=== PATIENT | male | born 1945 | race Caucasian/White ===

== ENCOUNTER 2017-06-10 01:48 | Emergency (ER) | payer MEDICARE ==
[~2017-06-10] VITALS: Ht 182.9 cm; Wt 87.9 kg
[~2017-06-10 01:48] MED LIST: ALPR0.254 PO; AMLO1TAB91 PO; CITA20TA9 PO; DEXL60CA2 PO; DONE10TA61 PO; LOSA100T2 PO; MAGN64TA6 PO; MULT-18 PO; POTA99TA10 PO; QUIN324C PO
--- NOTE | 2017-06-10 02:26 | PHYS DOC ---
Past History Past Medical History: Hypertension Additional Past Medical Histor: Cortical basal degeneration; CLL Past Surgical History: Appendectomy, Cholecystectomy Smoking: Non-smoker Alcohol Use: None Drug Use: None Social History Narrative: lives with and children Adult General Chief Complaint Chief Complaint: ALTERED MENTAL STATUS HPI HPI Patient is a 72 year old male who presents with confusion. 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 He has increasing confusion with this disease (per the son he will forget how to wash his hands). He was diagnosed with bronchitis last week and started on Amoxicillin. No fevers per the . Their daughter moved in after leaving her spouse and causing some strife. last Tuesday the patient was found "in a rage trying to throw out her stuff." Tonight he went to bed at 2300 PM. Unknown when he woke up but the family awakened to him "in a rage again trying to throw out her tubs." Police called initially for the disturbance. No known fall or trauma. PCP Dr Marshall Marrero Review of Systems Review of Systems Constitutional: Denies fever or chills Eyes: Denies change in visual acuity, redness, or eye pain HENT: Denies nasal congestion or sore throat Respiratory: POS cough but no shortness of breath Cardiovascular: No chest pain GI: Denies abdominal pain, nausea, vomiting, bloody stools or diarrhea : Denies dysuria or hematuria Musculoskeletal: Denies back pain or joint pain Integument: Denies rash or skin lesions Neurologic: Denies headache, focal weakness or sensory changes. CONFUSION worsening recently. All other systems were reviewed and found to be within normal limits, except as documented in this note. Current Medications Current Medications Current Medications Medications (Trade) Dose Ordered Sig/Rc Start Time Stop Time Status Last Admin Dose Admin Sodium Chloride 1,000 ml @ 1,000 mls/hr Q1H 06/10/17 02:30 06/10/17 03:29 Allergies Allergies Allergies Coded Allergies Type Severity Reaction Last Updated Verified No Known Drug Allergies 01/14/14 No Physical Exam Physical Exam Constitutional: Well developed, well nourished, no acute distress, non-toxic appearance. HENT: Normocephalic, atraumatic, bilateral external ears normal, oropharynx moist, no oral exudates, nose normal. Eyes: PERRLA, EOMI, conjunctiva normal, no discharge. Neck: Normal range of motion, no tenderness, supple, no stridor. Cardiovascular:Heart rate regular rhythm, no murmur Lungs & Thorax: Bilateral breath sounds clear to auscultation Abdomen: Bowel sounds normal, soft, no tenderness, no masses, no pulsatile masses. Skin: Warm, dry, no erythema, no rash. Back: No tenderness, no CVA tenderness. Extremities: No tenderness, no cyanosis, no clubbing, ROM intact, no edema. Neurologic: Alert and oriented X 1, normal motor function (chronic right upper extremity weakness), normal sensory function, no focal deficits noted. NIHSS 2 due to confusion (does not know age or month) Psychologic: emotionally labile Current Patient Data Vital Signs Vital Signs Date Time Temp Pulse Resp B/P (MAP) Pulse Ox O2 Delivery O2 Flow Rate FiO2 06/10/17 01:50 98.4 86 20 97 Lab Results Laboratory Tests Test 06/10/17 02:22 White Blood Count 13.3 x10^3/uL (4.0-11.0) Red Blood Count 5.09 x10^6/uL (4.30-5.70) Hemoglobin 15.0 g/dL (13.0-17.5) Hematocrit 43.2 % (39.0-53.0) Mean Corpuscular Volume 85 fL (79-100) Mean Corpuscular Hemoglobin 29 pg (25-35) Mean Corpuscular Hemoglobin Concent 35 g/dL (31-37) Red Cell Distribution Width 12.4 % (11.5-14.5) Platelet Count 191 x10^3/uL (140-400) Neutrophils (%) (Auto) 43 % (31-73) Lymphocytes (%) (Auto) 46 % (24-48) Monocytes (%) (Auto) 9 % (0-9) Eosinophils (%) (Auto) 2 % (0-3) Basophils (%) (Auto) 1 % (0-3) Neutrophils # (Auto) 5.7 x10^3uL (1.8-7.7) Lymphocytes # (Auto) 6.1 x10^3/uL (1.0-4.8) Monocytes # (Auto) 1.2 x10^3/uL (0.0-1.1) Eosinophils # (Auto) 0.2 x10^3/uL (0.0-0.7) Basophils # (Auto) 0.1 x10^3/uL (0.0-0.2) Sodium Level 139 mmol/L (136-145) Potassium Level 3.3 mmol/L (3.5-5.1) Chloride Level 102 mmol/L (98-107) Carbon Dioxide Level 28 mmol/L (21-32) Anion Gap 9 (6-14) Blood Urea Nitrogen 6 mg/dL (8-26) Creatinine 1.1 mg/dL (0.7-1.3) Estimated GFR (Cockcroft-Gault) 66.0 BUN/Creatinine Ratio 5 (6-20) Glucose Level 125 mg/dL (70-99) Lactic Acid Level 1.8 mmol/L (0.4-2.0) Calcium Level 8.8 mg/dL (8.5-10.1) Magnesium Level 1.9 mg/dL (1.8-2.4) Total Bilirubin 0.5 mg/dL (0.2-1.0) Aspartate Amino Transf (AST/SGOT) 18 U/L (15-37) Alanine Aminotransferase (ALT/SGPT) 31 U/L (16-63) Alkaline Phosphatase 84 U/L (46-116) Creatine Kinase 248 U/L (39-308) Troponin I Quantitative < 0.017 ng/mL (0-0.055) Total Protein 7.4 g/dL (6.4-8.2) Albumin 4.0 g/dL (3.4-5.0) Albumin/Globulin Ratio 1.2 (1.0-1.7) Lipase 337 U/L (73-393) EKG EKG EKG interpreted by myself at 0213 am with NSR, rate 82, no acute ST elevation Radiology/Procedures Radiology/Procedures CXR interpreted by myself at 0230 am with no acute infiltrate. [address] [address] IMAGING REPORT Signed PATIENT: NISHA SHEA ACCOUNT: [id number] : 1945 LOCATION: ER AGE: 72 SEX: M EXAM STATUS: REG ER ORD. PHYSICIAN: URBAN MARSHALL MD REASON: worsening confusion; has neurologic disorder PROCEDURE: CT HEAD WO CONTRAST INDICATION: 511851.001 Worsening confusion today. COMPARISON: None. TECHNIQUE: Axial CT images obtained through the head without intravenous contrast. One or more of the following individualized dose reduction techniques were utilized for this examination: 1. Automated exposure control; 2. Adjustment of the mA and/or kV according to patient size; 3. Use of iterative reconstruction technique. FINDINGS: No intracranial hemorrhage. No midline shift. Basal cisterns patents. Ventricles and sulci are globally prominent. No acute osseous abnormality. Orbits and paranasal sinuses unremarkable. Scattered foci of low attenuation within the white matter. IMPRESSION: 1. No acute intracranial hemorrhage. 2. Scattered regions of low attenuation within the white matter. Non-specific in nature but frequently secondary to chronic small vessel ischemic disease. 3. Prominence of ventricles and sulci which is frequently secondary to age related volume loss. Electronically signed by: Stas Ogden MD (06/10/2017 3:06 AM) [facility] DICTATED AND SIGNED BY: STAS OGDEN MD DATE: 06/10/17 0300 CC: URBAN MARSHALL MD; CLAIRE BARNETT DO ~ Course & Med Decision Making Course & Med Decision Making Met patient upon arrival. Reviewed prior records and discussed concerns with . He appears to have worsening behavioral and cognitive changes from his underlying neurodegenerative disease. His recent infection or the recent social change with his daughter or both may be worsening his condition. Proceed with evaluation. He does not meet TPA criteria as his findings are non focal and global with no definitive onset. At 0300 am: WBC elevated; started Rocephin IV; lactic acid 1.8. Awaiting CT head results. Spoke w family-she states he has CLL with chronic elevation of WBC which todays level is c/w usual levels. Offered admission PATIENT AND DECLINED. P 85, BP 146/96. He is markedly better in cognition;sitting up on side of bed. She will have him see Dr Barnett tomorrow. I have spoken with the patient and/or caregivers. I have explained the patient' s condition, diagnosis and treatment plan based on the information available to me at this time. I have answered the patient's and/or caregiver's questions and addressed any concerns. The patient and/or caregivers have as good an understanding of the patient's diagnosis, condition and treatment plan as can be expected at this point. The patient's condition is stable and appropriate for discharge from the emergency department. The patient will pursue further outpatient evaluation with the primary care physician or other designated or consulting physician as outlined in the discharge instructions. The patient and/or caregivers are agreeable to this plan of care and follow-up instructions have been explained in detail. The patient and/or caregivers have received these instructions in written format and have expressed an understanding of the discharge instructions. The patient and/or caregivers are aware that any significant change in condition or worsening of symptoms should prompt an immediate return to this or the closest emergency department or a call to 911. Dragon Disclaimer Dragon Disclaimer This electronic medical record was generated, in whole or in part, using a voice recognition dictation system. Departure Departure: Impression: Primary Impression: Bronchitis Additional Impressions: Confusion Neurodegenerative dementia Aggressive behavior Disposition: 01 HOME, SELF-CARE Condition: STABLE Patient Instructions: Acute Bronchitis Additional Instructions: CALL DR BARNETT IN THE AM AND HAVE HIM RECHECKED. NIHSS NIHSS Administer stroke scale items in the order listed. Record performance in each category after each subscale exam. Do not go back and change scores. Follow directions provided for each exam technique. Scores should reflect what the patient does, not what the clinician thinks the patient can do. The clinician should record answers while administering the exam and work quickly. Except where indicated, the patient should not be coached (i.e., repeated requests to patient to make a special effort). 1a. Level of Consciousness: The case investigator must choose a response if a full evaluation is prevented by such obstacles as an endotracheal tube, language barrier, orotracheal trauma/bandages. A 3 is scored only if the patient makes no movement (other than reflexive posturing) in response to noxious stimulation. 0 = Alert; keenly responsive. 1 = Not alert; but arousable by minor stimulation to obey, answer, or respond. 2 = Not alert; requires repeated stimulation to attend, or is obtunded and requires strong or painful stimulation to make movements (not stereotyped). 3 = Responds only with reflex motor or autonomic effects or totally unresponsive, flaccid, and areflexic. 1b. LOC Questions: The patient is asked the month and his/her age. The answer must be correct - there is no partial credit for being close. Aphasic and stuporous patients who do not comprehend the questions will score 2. Patients unable to speak because of endotracheal intubation, orotracheal trauma, severe dysarthria from any cause, language barrier, or any other problem not secondary to aphasia are given a 1. It is important that only the initial answer be graded and that the examiner not "help" the patient with verbal or non-verbal cues. 0 = Answers both questions correctly. 1 = Answers one question correctly. 2 = Answers neither question correctly. 1c. LOC Commands: The patient is asked to open and close the eyes and then to hydraulic lift operator and release the non-paretic hand. Substitute another one step command if the hands cannot be used. Credit is given if an unequivocal attempt is made but not completed due to weakness. If the patient does not respond to command, the task should be demonstrated to him or her (pantomime), and the result scored (i.e., follows none, one or two commands). Patients with trauma, amputation, or other physical impediments should be given suitable one-step commands. Only the first attempt is scored. 0 = Performs both tasks correctly. 1 = Performs one task correctly. 2 = Performs neither task correctly. 2. Best Gaze: Only horizontal eye movements will be tested. Voluntary or reflexive (oculocephalic) eye movements will be scored, but caloric testing is not done. If the patient has a conjugate deviation of the eyes that can be overcome by voluntary or reflexive activity, the score will be 1. If a patient has an isolated peripheral nerve paresis (CN III, IV or ), score a 1. Gaze is testable in all aphasic patients. Patients with ocular trauma, bandages, pre-existing blindness, or other disorder of visual acuity or head should be tested with reflexive movements, and a choice made by the case investigator. Establishing eye contact and then moving about the patient from side to side will occasionally clarify the presence of a partial gaze palsy. 0 = Normal. 1 = Partial gaze palsy; gaze is abnormal in one or both eyes, but forced deviation or total gaze paresis is not present. 2 = Forced deviation, or total gaze paresis not overcome by the oculocephalic maneuver. Interval: [ ] Baseline [ ] 2 hours post treatment [ ] 24 hours post onset of symptoms 20 minutes [ ] 7-10 days [ ] 3 months [ ] Other ( ) 3. Visual: Visual head (upper and lower quadrants) are tested by confrontation, using finger counting or visual threat, as appropriate. Patients may be encouraged, but if they look at the side of the moving fingers appropriately, this can be scored as normal. If there is unilateral blindness or enucleation, visual head in the remaining eye are scored. Score 1 only if a clear-cut asymmetry, including quadrantanopia, is found. If patient is blind from any cause, score 3. Double simultaneous stimulation is performed at this point. If there is extinction, patient receives a 1, and the results are used to respond to item 11. 0 = No visual loss. 1 = Partial hemianopia. 2 = Complete hemianopia. 3 = Bilateral hemianopia (blind including cortical blindness). 4. Facial Palsy: Ask - or use pantomime to encourage - the patient to show teeth or raise eyebrows and close eyes. Score symmetry of grimace in response to noxious stimuli in the poorly responsive or non-comprehending patient. If facial trauma/bandages, orotracheal tube, tape or other physical barriers obscure the face, these should be removed to the extent possible. 0 = Normal symmetrical movements. 1 = Minor paralysis (flattened nasolabial fold, asymmetry on smiling). 2 = Partial paralysis (total or near-total paralysis of lower face). 3 = Complete paralysis of one or both sides (absence of facial movement in the upper and lower face). 5. Motor Arm: The limb is placed in the appropriate position: extend the arms (palms down) 90 degrees (if sitting) or 45 degrees (if supine). Drift is scored if the arm falls before 10 seconds. The aphasic patient is encouraged using urgency in the voice and pantomime, but not noxious stimulation. Each limb is tested in turn, beginning with the non-paretic arm. Only in the case of amputation or joint fusion at the shoulder, the examiner should record the score as untestable (UN), and clearly write the explanation for this choice. 0 = No drift; limb holds 90 (or 45) degrees for full 10 seconds. 1 = Drift; limb holds 90 (or 45) degrees, but drifts down before full 10 seconds ; does not hit bed or other support. 2 = Some effort against gravity; limb cannot get to or maintain (if cued) 90 ( or 45) degrees, drifts down to bed, but has some effort against gravity. 3 = No effort against gravity; limb falls. 4 = No movement. UN = Amputation or joint fusion, explain: 5a. Left Arm=0 5b. Right Arm =0 6. Motor Leg: The limb is placed in the appropriate position: hold the leg at 30 degrees (always tested supine). Drift is scored if the leg falls before 5 seconds. The aphasic patient is encouraged using urgency in the voice and pantomime, but not noxious stimulation. Each limb is tested in turn, beginning with the non-paretic leg. Only in the case of amputation or joint fusion at the hip, the examiner should record the score as untestable (UN), and clearly write the explanation for this choice. 0 = No drift; leg holds 30-degree position for full 5 seconds. 1 = Drift; leg falls by the end of the 5-second period but does not hit bed. 2 = Some effort against gravity; leg falls to bed by 5 seconds, but has some effort against gravity. 3 = No effort against gravity; leg falls to bed immediately. 4 = No movement. UN = Amputation or joint fusion, explain: 6a. Left Leg=0 6b. Right Leg=0 Interval: [ ] Baseline [ ] 2 hours post treatment [ ] 24 hours post onset of symptoms 20 minutes [ ] 7-10 days [ ] 3 months [ ] Other ( ) 7. Limb Ataxia: This item is aimed at finding evidence of a unilateral cerebellar lesion. Test with eyes open. In case of visual defect, ensure testing is done in intact visual field. The eyioxk-lnkr-lfaxba and heel-osorio tests are performed on both sides, and ataxia is scored only if present out of proportion to weakness. Ataxia is absent in the patient who cannot understand or is paralyzed. Only in the case of amputation or joint fusion, the examiner should record the score as untestable (UN), and clearly write the explanation for this choice. In case of blindness, test by having the patient touch nose from extended arm position. 0 = Absent. 1 = Present in one limb. 2 = Present in two limbs. UN = Amputation or joint fusion, explain: 8. Sensory: Sensation or grimace to pinprick when tested, or withdrawal from noxious stimulus in the obtunded or aphasic patient. Only sensory loss attributed to stroke is scored as abnormal and the examiner should test as many body areas (arms [not hands], legs, trunk, face) as needed to accurately check for hemisensory loss. A score of 2, "severe or total sensory loss," should only be given when a severe or total loss of sensation can be clearly demonstrated. Stuporous and aphasic patients will, therefore, probably score 1 or 0. The patient with brainstem stroke who has bilateral loss of sensation is scored 2. If the patient does not respond and is quadriplegic, score 2. Patients in a coma (item 1a=3) are automatically given a 2 on this item. 0 = Normal; no sensory loss. 1 = Areg-yg-cvdudubw sensory loss; patient feels pinprick is less sharp or is dull on the affected side; or there is a loss of superficial pain with pinprick , but patient is aware of being touched. 2 = Severe to total sensory loss; patient is not aware of being touched in the face, arm, and leg. 9. Best Language: A great deal of information about comprehension will be obtained during the preceding sections of the examination. For this scale item, the patient is asked to describe what is happening in the attached picture, to name the items on the attached naming sheet and to read from the attached list of sentences. Comprehension is judged from responses here, as well as to all of the commands in the preceding general neurological exam. If visual loss interferes with the tests, ask the patient to identify objects placed in the hand, repeat, and produce speech. The intubated patient should be asked to write. The patient in a coma (item 1a=3) will automatically score 3 on this item. The examiner must choose a score for the patient with stupor or limited cooperation, but a score of 3 should be used only if the patient is mute and follows no one-step commands. 0 = No aphasia; normal. 1 = Kwet-gs-uoxpnfgo aphasia; some obvious loss of fluency or facility of comprehension, without significant limitation on ideas expressed or form of expression. Reduction of speech and/or comprehension, however, makes conversation about provided materials difficult or impossible. For example, in conversation about provided materials, examiner can identify picture or naming card content from patient's response. 2 = Severe aphasia; all communication is through fragmentary expression; great need for inference, questioning, and guessing by the listener. Range of information that can be exchanged is limited; listener carries burden of communication. Examiner cannot identify materials provided from patient response. 3 = Mute, global aphasia; no usable speech or auditory comprehension. 10. Dysarthria: If patient is thought to be normal, an adequate sample of speech must be obtained by asking patient to read or repeat words from the attached list. If the patient has severe aphasia, the clarity of articulation of spontaneous speech can be rated. Only if the patient is intubated or has other physical barriers to producing speech, the examiner should record the score as untestable (UN), and clearly write an explanation for this choice. Do not tell the patient why he or she is being tested. 0 = Normal. 1 = Pbph-xb-iczhlpze dysarthria; patient slurs at least some words and, at worst , can be understood with some difficulty. 2 = Severe dysarthria; patient's speech is so slurred as to be unintelligible in the absence of or out of proportion to any dysphasia, or is mute/anarthric. UN = Intubated or other physical barrier, explain: Interval: [ ] Baseline [ ] 2 hours post treatment [ ] 24 hours post onset of symptoms 20 minutes [ ] 7-10 days [ ] 3 months [ ] Other ( ) 11. Extinction and Inattention (formerly Neglect): Sufficient information to identify neglect may be obtained during the prior testing. If the patient has a severe visual loss preventing visual double simultaneous stimulation, and the cutaneous stimuli are normal, the score is normal. If the patient has aphasia but does appear to attend to both sides, the score is normal. The presence of visual spatial neglect or anosagnosia may also be taken as evidence of abnormality. Since the abnormality is scored only if present, the item is never untestable. 0 = No abnormality. 1 = Visual, tactile, auditory, spatial, or personal inattention or extinction to bilateral simultaneous stimulation in one of the sensory modalities. 2 = Profound pavithra-inattention or extinction to more than one modality; does not recognize own hand or orients to only one side of space. NIHSS 2 at 0205 am Problem Qualifiers Additional Impressions: Neurodegenerative dementia Dementia behavioral disturbance: with behavioral disturbance Qualified Codes : F03.91 - Unspecified dementia with behavioral disturbance URBAN MARSHALL MD Jun 10, 2017 02:26
[2017-06-10] MEDS ORDERED: IV NORMAL SALINE 1,000ML 1,000 ML IV SCH (02:30)
[2017-06-10 02:36] LABS: BASO # 0.1 x10^3/uL (0.0-0.2); BASO % 1 % (0-3); EOS # 0.2 x10^3/uL (0.0-0.7); EOS % 2 % (0-3); HEMATOCRIT 43.2 % (39.0-53.0); LYMPH # 6.1 x10^3/uL (1.0-4.8); LYMPH % 46 % (24-48); MEAN CORPUSCULAR HEMOGLOBIN 29 pg (25-35); MEAN CORPUSCULAR HGB CONC 35 g/dL (31-37); MEAN CORPUSCULAR VOLUME 85 fL (79-100); MONO # 1.2 x10^3/uL (0.0-1.1); MONO % 9 % (0-9); NEUT # 5.7 x10^3uL (1.8-7.7); NEUT % 43 % (31-73); PLATELET COUNT 191 x10^3/uL (140-400); RED BLOOD COUNT 5.09 x10^6/uL (4.30-5.70); RED CELL DISTRIBUTION WIDTH 12.4 % (11.5-14.5); WHITE BLOOD COUNT 13.3 x10^3/uL (4.0-11.0)
--- NOTE | 2017-06-10 02:39 | EKG ---
[address] [address] Test Date: 2017-06-10 Test Time: 02:13:04 Pat Name: NISHA SHEA Department: Room: Gender: M Mink Farmer: TERENCE : 1945 Requested By: URBAN MARSHALL Order Number: [id number] Reading MD: Josh Cox MD Measurements Intervals [place] Rate: 82 P: 52 MA: 174 QRS: 55 QRSD: 80 T: 72 QT: 380 QTc: 447 Interpretive Statements SINUS RHYTHM Electronically Signed On 06-13-2017 10:51:27 PRIVATE ADVISOR by Josh Cox MD
[2017-06-10 02:48] LABS: ALBUMIN/GLOBULIN RATIO 1.2 (1.0-1.7); CALCIUM 8.8 mg/dL (8.5-10.1); CREATININE 1.1 mg/dL (0.7-1.3); MAGNESIUM 1.9 mg/dL (1.8-2.4); POTASSIUM 3.3 mmol/L (3.5-5.1); TOTAL BILIRUBIN 0.5 mg/dL (0.2-1.0); TOTAL PROTEIN 7.4 g/dL (6.4-8.2)
[2017-06-10] MEDS ORDERED: IV NORMAL SALINE 50ML 50 ML ONE (03:07)
[2017-06-10] MEDS ORDERED: cefTRIAXone SODIUM 1 GM VIAL IV ONE (03:08)
--- NOTE | 2017-06-10 03:09 | RAD ---
INDICATION: [id number] Worsening confusion today. COMPARISON: None. TECHNIQUE: Axial CT images obtained through the head without intravenous contrast. One or more of the following individualized dose reduction techniques were utilized for this examination: 1. Automated exposure control; 2. Adjustment of the mA and/or kV according to patient size; 3. Use of iterative reconstruction technique. FINDINGS: No intracranial hemorrhage. No midline shift. Basal cisterns patents. Ventricles and sulci are globally prominent. No acute osseous abnormality. Orbits and paranasal sinuses unremarkable. Scattered foci of low attenuation within the white matter. IMPRESSION: 1. No acute intracranial hemorrhage. 2. Scattered regions of low attenuation within the white matter. Non-specific in nature but frequently secondary to chronic small vessel ischemic disease. 3. Prominence of ventricles and sulci which is frequently secondary to age related volume loss. Electronically signed by: Jesus Puga MD (06/10/2017 3:06 AM) [facility]
[2017-06-10 03:41] LABS: BACTERIA,URINE 0 /HPF (0-FEW); BILIRUBIN,URINE NEG (NEG); CLARITY,URINE CLEAR; COLOR,URINE YELLOW; GLUCOSE,URINE NEG (NEG); NITRITE,URINE NEG (NEG); RBC,URINE RARE /HPF (0-2); SQUAMOUS EPITHELIAL CELL,UR FEW /LPF; UROBILINOGEN,URINE 0.2 mg/dL (0.2 mg/dL); WBC,URINE RARE /HPF (0-4)
[2017-06-10 03:58] VITALS: BP 138/89
--- NOTE | 2017-06-10 07:59 | RAD ---
Portable AP view CXR: Clinical indications: Cough and congestion tonight. Findings: No acute lung infiltrate or pleural effusion or pulmonary edema or lung mass or pneumothorax is seen. The heart size, pulmonary vasculature, mediastinum and both dianne are unremarkable. Impression: No acute radiographic abnormality is seen.
== END 2017-06-10 03:58 | disposition home or self-care (01) ==
LOC: ER 01:48
DX: R41.0 Disorientation, unspecified (principal); J40 Bronchitis, not specified as acute or chronic; F03.91 Unspecified dementia, unspecified severity, with behavioral disturbance; I10 Essential (primary) hypertension
CPT/HCPCS: 36415; 70450; 71010; 80053; 81001; 82550; 83605; 83690; 83735; 84484; 85025; 93005; 96361; 96365; 99285; J0696; J7030

== ENCOUNTER 2017-07-19 19:15 | Emergency (ER) | payer MEDICARE ==
[~2017-07-19] VITALS: Ht 182.9 cm; Wt 87.9 kg
[2017-07-19 20:35] LABS: BASO % 0 % (0-3); EOS # 0.2 x10^3/uL (0.0-0.7); EOS % 1 % (0-3); HEMATOCRIT 44.7 % (39.0-53.0); HEMOGLOBIN 15.4 g/dL (13.0-17.5); LYMPH # 6.5 x10^3/uL (1.0-4.8); LYMPH % 49 % (24-48); MEAN CORPUSCULAR HEMOGLOBIN 30 pg (25-35); MEAN CORPUSCULAR HGB CONC 34 g/dL (31-37); MEAN CORPUSCULAR VOLUME 86 fL (79-100); MONO # 0.9 x10^3/uL (0.0-1.1); MONO % 7 % (0-9); NEUT # 5.7 x10^3uL (1.8-7.7); NEUT % 43 % (31-73); PLATELET COUNT 188 x10^3/uL (140-400); RED CELL DISTRIBUTION WIDTH 12.6 % (11.5-14.5); WHITE BLOOD COUNT 13.4 x10^3/uL (4.0-11.0)
[2017-07-19 20:38] LABS: BARBITURATES NEG (NEG); BENZODIAZEPINES NEG (NEG); CANNABINOIDS NEG (NEG); COCAINE NEG (NEG); METHADONE NEG (NEG); OPIATES NEG (NEG); PHENCYCLIDINE NEG (NEG)
[2017-07-19 20:39] LABS: BILIRUBIN,URINE NEG (NEG); CLARITY,URINE CLEAR; COLOR,URINE YELLOW; GLUCOSE,URINE NEG (NEG)
[2017-07-19 20:40] LABS: BACTERIA,URINE 0 /HPF (0-FEW); NITRITE,URINE NEG (NEG); RBC,URINE 0 /HPF (0-2); UROBILINOGEN,URINE 0.2 mg/dL (0.2 mg/dL); WBC,URINE 0 /HPF (0-4)
[2017-07-19 20:41] LABS: ALBUMIN 3.8 g/dL (3.4-5.0); ALBUMIN/GLOBULIN RATIO 1.2 (1.0-1.7); CALCIUM 8.7 mg/dL (8.5-10.1); GFR 73.7; POTASSIUM 3.4 mmol/L (3.5-5.1); TOTAL BILIRUBIN 0.2 mg/dL (0.2-1.0); TOTAL PROTEIN 7.1 g/dL (6.4-8.2)
[2017-07-19 20:43] LABS: AMPHETAMINE/METHAMPHETAMINE NEG (NEG)
--- NOTE | 2017-07-19 21:13 | RAD ---
PQRS Compliance Statement: One or more of the following individualized dose reduction techniques were utilized for this examination: 1. Automated exposure control 2. Adjustment of the mA and/or kV according to patient size 3. Use of iterative reconstruction technique CT head without contrast 07/19/2017 8:07 PM INDICATION: Altered mental status, unresponsive COMPARISON: CT head June 10, 2017 TECHNIQUE: Multiple axial CT images of the head were obtained from skull base through the vertex without intravenous contrast. FINDINGS: Head: Ventricles, sulci and basal cisterns are within normal limits. There is no hydrocephalus. Delgado-white matter differentiation is normal. There is no acute intracranial hemorrhage. There is no mass, mass effect or midline shift. Posterior fossa is normal in appearance. Calcifications are noted in the vertebrobasilar system. Visualized portions of the orbits are normal. Paranasal sinuses are well aerated. Mastoid air cells are well aerated. Scalp and calvaria are normal. IMPRESSION: No acute intracranial hemorrhage. Electronically signed by: Polina Iglesias MD (07/19/2017 9:10 PM) [facility]
[2017-07-19] MEDS ORDERED: diphenhydrAMINE 50 MG/ML VIAL IV ONE (21:30)
[2017-07-19] MEDS ORDERED: IV NORMAL SALINE 1,000ML 1,000 ML IV ONE (21:30)
[2017-07-19] MEDS ORDERED: KETOROLAC 15 MG/ML VIAL. IV ONE (21:30)
[2017-07-19] MEDS ORDERED: PROCHLORPERAZINE 10 MG/2 ML VIAL. IV ONE (21:30)
[2017-07-19 22:47] VITALS: BP 141/83
[2017-07-19] MEDS ORDERED: DIPH25CA58 PO (22:51)
[2017-07-19] MEDS ORDERED: TRAM-48 PO (22:51)
[2017-07-19] MEDS ORDERED: METO10TA81 PO (22:51)
--- NOTE | 2017-07-19 22:52 | PHYS DOC ---
Past History Past Medical History: Hypertension Additional Past Medical Histor: Cortical basal degeneration; CLL Past Surgical History: Appendectomy, Cholecystectomy Smoking: Non-smoker Alcohol Use: None Drug Use: None Adult General Chief Complaint Chief Complaint: ALTERED MENTAL STATUS HPI HPI Patient is a 72-year-old gentleman with history of cortical basal degeneration diagnosed approximately 7-10 years ago as well as hypertension who presents here today secondary to the family describes as altered mental status. The family reports that he's been having headache since Tuesday and has had increased fatigue and falls asleep fairly. Today he was eating dinner when he fell asleep and they're hard time waking him up so they called EMS. He reports that he fell asleep on the table and the current get him to arouse. EMS arrived and transferred the patient here to the ER. Upon arrival to the ER the patient was somnolent however easily arousable. Upon arrival to the family reports that he is back to his baseline again. Patient family denies any seizure-like activity. No tonic-clonic movement, no loss of bowel or bladder function, no fevers shakes chills nausea or vomiting. Patient of chronic loose stools ever since his cholecystectomy. Patient reports some dizziness and headache. Patient has any chest pain or shortness of breath. Patient has any change in any of his medications. Patient denies any dysuria frequency or urgency. Patient has any melena or blood per rectum. Patient has any recent head trauma. Patient has no history of diabetes liver or kidney pals. Patient is status post appendectomy and cholecystectomy. Patient has never had a stroke in the past. Patient does not smoke or drink. Patient is allergic to any medications. Patient's PCP is Dr. Barnett and he sees a specialist Dr. Vallejo in . Review of systems: Constitutional: Denies fever or chills Eyes: Denies change in visual acuity, redness, or eye pain HENT: Denies nasal congestion or sore throat Respiratory: Denies cough or shortness of breath All other systems were reviewed and found to be within normal limits, except as documented in this note. Physical exam: Constitutional: Well developed, well nourished, no acute distress, non-toxic appearance. HENT: Normocephalic, atraumatic, bilateral external ears normal, nose normal. Eyes: PERRLA, EOMI, conjunctiva normal, no discharge. Neck: Normal range of motion, no tenderness, supple, no stridor. Cardiovascular: Heart rate regular rhythm, Lungs & Thorax: Bilateral breath sounds clear to auscultation Abdomen: No abdominal distention. Skin: Warm, dry, no erythema, no rash. Back: Normal spinal curvature Extremities: No tenderness, no cyanosis, no clubbing, ROM intact, no edema. Neurologic: Alert and oriented X 3, at baseline. Moving all extremities well except his right upper extremity which is at baseline. Psychologic: Affect normal, judgement normal, mood normal. No papilledema. Patient's ER physical exam was most remarkable: EKG as interpreted by ER physician reveals: Normal sinus rhythm at a heart rate of [address]-T wave abnormality. No evidence of ST elevation NM. Chest x-ray as interpreted by ER physician reveals: CT scan reveals no acute pathology. Labs reviewed: CBC, CMP, UA, troponin all within normal limits. Assessment and plan: 1. This is a 72-year-old gentleman who presents here today secondary to increased somnolence since Tuesday and difficulty to arouse earlier today. Patient does not appear to have a syncopal episode. Family reports he is present down the table and fell asleep and they couldn't wake him up. Upon arrival to the ER the patient is currently alert awake and oriented and back to his baseline per the family. Patient's ER workup is been unremarkable. Patient' s main complain the family's main complaint is his headache. The reports that she thinks that he's having a migraine and that she thinks that he is having a hard time staying awake secondary to wanting to sleep secondary to his pain. reports that during the day he is concent closing his eye secondary to the light and able keep his eyes open does not sleep as much. While the ER the patient was given a migraine cocktail including Compazine, Toradol and Benadryl as well as IV fluids with near complete resolution of his discomfort. Patient reports currently he is a 1/10 pain with his headache. When first evaluated he reported that his pain was a 9 out of 10. Patient is currently back to his baseline mental status and the family feels very comfortable with the plan to be discharged home and follow-up with her primary care physician/ neurologist in the a.m. to further evaluate the source of his headaches. Current Medications Current Medications Current Medications Medications (Trade) Dose Ordered Sig/Rc Start Time Stop Time Status Last Admin Dose Admin Diphenhydramine HCl (Benadryl) 25 mg 1X ONCE 07/19/17 21:30 07/19/17 21:31 DC 07/19/17 21:38 25 MG Ketorolac Tromethamine (Toradol) 15 mg 1X ONCE 07/19/17 21:30 07/19/17 21:31 DC 07/19/17 21:38 15 MG Prochlorperazine Edisylate (Compazine) 10 mg 1X ONCE 07/19/17 21:30 07/19/17 21:31 DC 07/19/17 21:38 10 MG Sodium Chloride 1,000 ml @ 1,000 mls/hr 1X ONCE 07/19/17 21:30 07/19/17 22:29 DC 07/19/17 21:37 1,000 MLS/HR Allergies Allergies Allergies Coded Allergies Type Severity Reaction Last Updated Verified No Known Drug Allergies 01/14/14 No Current Patient Data Lab Results Laboratory Tests Test 07/19/17 19:23 White Blood Count 13.4 x10^3/uL (4.0-11.0) H Red Blood Count 5.20 x10^6/uL (4.30-5.70) Hemoglobin 15.4 g/dL (13.0-17.5) Hematocrit 44.7 % (39.0-53.0) Mean Corpuscular Volume 86 fL (79-100) Mean Corpuscular Hemoglobin 30 pg (25-35) Mean Corpuscular Hemoglobin Concent 34 g/dL (31-37) Red Cell Distribution Width 12.6 % (11.5-14.5) Platelet Count 188 x10^3/uL (140-400) Neutrophils (%) (Auto) 43 % (31-73) Lymphocytes (%) (Auto) 49 % (24-48) H Monocytes (%) (Auto) 7 % (0-9) Eosinophils (%) (Auto) 1 % (0-3) Basophils (%) (Auto) 0 % (0-3) Neutrophils # (Auto) 5.7 x10^3uL (1.8-7.7) Lymphocytes # (Auto) 6.5 x10^3/uL (1.0-4.8) H Monocytes # (Auto) 0.9 x10^3/uL (0.0-1.1) Eosinophils # (Auto) 0.2 x10^3/uL (0.0-0.7) Basophils # (Auto) 0.0 x10^3/uL (0.0-0.2) Urine Collection Type U cath Urine Color Yellow Urine Clarity Clear Urine pH 5.5 Urine Specific Mathews 1.015 Urine Protein Neg (NEG-TRACE) Urine Glucose (UA) Neg mg/dL (NEG) Urine Ketones (Stick) Neg mg/dL (NEG) Urine Blood Neg (NEG) Urine Nitrite Neg (NEG) Urine Bilirubin Neg (NEG) Urine Urobilinogen Dipstick 0.2 mg/dL (0.2 mg/dL) Urine Leukocyte Esterase Neg (NEG) Urine RBC 0 /HPF (0-2) Urine WBC 0 /HPF (0-4) Urine Squamous Epithelial Cells None /LPF Urine Bacteria 0 /HPF (0-FEW) Sodium Level 137 mmol/L (136-145) Potassium Level 3.4 mmol/L (3.5-5.1) L Chloride Level 103 mmol/L (98-107) Carbon Dioxide Level 29 mmol/L (21-32) Anion Gap 5 (6-14) L Blood Urea Nitrogen 8 mg/dL (8-26) Creatinine 1.0 mg/dL (0.7-1.3) Estimated GFR (Cockcroft-Gault) 73.7 BUN/Creatinine Ratio 8 (6-20) Glucose Level 123 mg/dL (70-99) H Calcium Level 8.7 mg/dL (8.5-10.1) Total Bilirubin 0.2 mg/dL (0.2-1.0) Aspartate Amino Transferase (AST) 24 U/L (15-37) Alanine Aminotransferase (ALT) 42 U/L (16-63) Alkaline Phosphatase 75 U/L (46-116) Total Protein 7.1 g/dL (6.4-8.2) Albumin 3.8 g/dL (3.4-5.0) Albumin/Globulin Ratio 1.2 (1.0-1.7) Urine Opiates Screen Neg (NEG) Urine Methadone Screen Neg (NEG) Urine Barbiturates Neg (NEG) Urine Phencyclidine Screen Neg (NEG) Urine Amphetamine/Methamphetamine Neg (NEG) Urine Benzodiazepines Screen Neg (NEG) Urine Cocaine Screen Neg (NEG) Urine Cannabinoids Screen Neg (NEG) Ethyl Alcohol Level < 10 mg/dL (0-10) Urine Ethyl Alcohol Neg (NEG) EKG EKG [] Radiology/Procedures Radiology/Procedures [] Course & Med Decision Making Course & Med Decision Making Pertinent Labs and Imaging studies reviewed. (See chart for details) [] Dragon Disclaimer Dragon Disclaimer This electronic medical record was generated, in whole or in part, using a voice recognition dictation system. Departure Departure: Impression: Primary Impression: Altered mental status Additional Impressions: Headache Somnolence, daytime Disposition: HOME, SELF-CARE Condition: IMPROVED Referrals: CLAIRE BARNETT DO (PCP) Patient Instructions: Confusion, General Headache Without Cause Scripts Diphenhydramine Hcl (BENADRYL) 25 Mg Capsule 1 CAP PO QID Y for HEADACHE, #20 CAP 2 Refills Prov: JON CEE MD 07/19/17 Metoclopramide Hcl (REGLAN) 10 Mg Tablet 1 TAB PO TID Y for HEADACHE, #30 TAB Prov: JON CEE MD 07/19/17 Tramadol Hcl (ULTRAM) 50 Mg Tablet 50 MG PO PRN Q6HRS Y for PAIN, #20 TAB Prov: JON CEE MD 07/19/17 Problem Qualifiers JON CEE MD Jul 19, 2017 22:52
--- NOTE | 2017-07-19 22:57 | EKG ---
[address] [address] Test Date: 2017-07-19 Test Time: 19:20:53 Pat Name: NISHA SHEA Department: Room: Gender: M Risk Reduction Counselor: TERENCE : 1945 Requested By: JON CEE Order Number: [id number] Reading MD: Measurements Intervals Foster Rate: 67 P: 33 IA: 178 QRS: 20 QRSD: 78 T: 55 QT: 396 QTc: 421 Interpretive Statements SINUS RHYTHM NO SPECIFIC ECG ABNORMALITIES RI6.01 Unconfirmed report No previous ECG available for comparison
== END 2017-07-19 23:08 | disposition home or self-care (01) ==
LOC: ER 19:15
DX: R41.82 Altered mental status, unspecified (principal); R40.0 Somnolence; R51 Headache; I10 Essential (primary) hypertension
CPT/HCPCS: 36415; 70450; 80053; 80307; 81001; 85025; 93005; 96361; 96374; 96375; 99285; G0480; J0780; J1200; J1885; G0479; J7030

== ENCOUNTER → 2017-11-14 | Outpatient (CLI) | payer MEDICARE ==
[~2017-11-14] MED LIST changes: +DIPH25CA58 PO; +METO10TA81 PO; +TRAM-48 PO
--- NOTE | 2017-11-14 16:45 | RAD ---
PQRS Compliance Statement: One or more of the following individualized dose reduction techniques were utilized for this examination: 1. Automated exposure control 2. Adjustment of the mA and/or kV according to patient size 3. Use of iterative reconstruction technique CT abdomen/pelvis without contrast 11/14/2017 3:00 PM INDICATION: Nausea, vomiting and upper abdominal pain COMPARISON: CT abdomen/pelvis January 14, 2014 TECHNIQUE: Multiple axial CT images of the abdomen and pelvis were obtained without intravenous contrast. Coronal and sagittal reformats are provided. FINDINGS: Lung bases are clear. Heart size is within normal limits. Hypoattenuation of the hepatic parenchyma suggestive of hepatic steatosis. No suspicious hepatic mass is visualized. Bladder surgically absent. The spleen, bilateral adrenal glands, and pancreas are normal in appearance. Abdominal aorta is normal in course and caliber. There are no pathologically enlarged lymph nodes in abdomen or pelvis. There is no free fluid or free intraperitoneal air. The kidneys are symmetric in appearance. There is a hypoattenuating cystic lesion in the midpole the right kidney measuring 17 mm. This may represent a parapelvic renal cortical cyst, stable since 2013. There are no renal calculi are identified. There are no calculi identified in the ureters or urinary bladder. Small large bowel are normal in caliber. No evidence for bowel obstruction or inflammation. The appendix is not definitively visualized. No pericecal inflammatory changes are identified. Urinary bladder is within normal limits given degree of distention. Prostate is mildly enlarged measuring 4.0 x 5.0 cm. No suspicious osseous lesions are identified. IMPRESSION: No acute abnormality is identified in abdomen and pelvis. Diffuse hypoattenuation of the hepatic parenchyma suggestive of hepatic steatosis. Mild prostatomegaly. Electronically signed by: Polina Iglesias MD (11/14/2017 4:42 PM) [id number]
== END | disposition home or self-care (01) ==
LOC: CT 14:00
PROVIDERS: ATTEND Internal Medicine Gastroenterology
DX: N40.0 Benign prostatic hyperplasia without lower urinary tract symptoms (principal); I10 Essential (primary) hypertension; R11.2 Nausea with vomiting, unspecified
CPT/HCPCS: 74176

== ENCOUNTER → 2017-12-06 | Outpatient (CLI) | payer MEDICARE ==
[~2017-12-06] MED LIST changes: +BUPIVACAINE MPF 0.25% 10 ML VIAL. ONE; +methylPREDNISolone ACETATE 40 MG/ML VIAL. ONE
== END ==
LOC: SURG 14:13
PROVIDERS: ATTEND Anesthesiology
DX: M79.1 Myalgia (principal); M25.512 Pain in left shoulder; I10 Essential (primary) hypertension; K21.9 Gastro-esophageal reflux disease without esophagitis; Z87.39 Personal history of other diseases of the musculoskeletal system and connective tissue; Z98.890 Other specified postprocedural states
CPT/HCPCS: 20553; 62323; J1030; J3490